=== PATIENT | female | born 1960 | race Caucasian/White ===

== ENCOUNTER 2017-10-30 08:49 | Day surgery (SDC) | payer BC ==
[2017-10-30] MEDS: NS 1,000 ML IV (10:26)
[2017-10-30] MEDS ORDERED: PROPOFOL 200 MG/20 ML VIAL As Ordered ×2 (10:43→10:53)
[2017-10-30] MEDS ORDERED: LIDOCAINE 2% INJ 100 MG/5 ML SDV (FOR ANES.) As Ordered (10:43)
== END 2017-10-30 11:50 | disposition home or self-care (01) ==
LOC: M OPP 08:49
DX: Z12.11 Encounter for screening for malignant neoplasm of colon (principal); Q43.8 Other specified congenital malformations of intestine; Z86.010 Personal history of colon polyps; D64.9 Anemia, unspecified; C91.10 Chronic lymphocytic leukemia of B-cell type not having achieved remission; M85.80 Other specified disorders of bone density and structure, unspecified site; G47.00 Insomnia, unspecified; Z79.899 Other long term (current) drug therapy; Z82.69 Family history of other diseases of the musculoskeletal system and connective tissue; Z80.1 Family history of malignant neoplasm of trachea, bronchus and lung
CPT/HCPCS: 45378

== ENCOUNTER → 2019-01-21 | Outpatient (REF) | payer BC ==
[~2019-01-21] MED LIST: ESZO1TAB6 PO; FERR32TA PO; LORA0.5T11 PO; OSPH1TAB PO
[2019-01-21 16:01] LABS: HEMATOCRIT 38.7 % (36.0-47.0); HEMOGLOBIN 11.6 g/dl (12.0-15.5); MEAN CORPUSCULAR HEMOGLOBIN 30.4 pg (27.0-33.0); MEAN CORPUSCULAR VOLUME 101.6 fl (80.0-96.0); PLATELET COUNT, AUTOMATED 161 10^3/uL (150-450); RED BLOOD COUNT 3.81 10^6/uL (4.00-5.40)
[2019-01-21 16:12] LABS: ALBUMIN 4.3 GM/DL (3.2-5.2); ALT/SGPT 24 U/L (12-78); BILIRUBIN,TOTAL 0.5 MG/DL (0.2-1.0); BLOOD UREA NITROGEN 10 MG/DL (7-18); CALCIUM LEVEL 9.1 MG/DL (8.5-10.1); CARBON DIOXIDE LEVEL 27 MEQ/L (21-32); CHLORIDE LEVEL 108 MEQ/L (98-107); CREATININE FOR GFR 0.89 MG/DL (0.55-1.30); GLOMERULAR FILTRATION RATE > 60.0 (>51); GLUCOSE, FASTING 88 MG/DL (70-100); POTASSIUM SERUM 4.2 MEQ/L (3.5-5.1); SODIUM LEVEL 143 MEQ/L (136-145); TOTAL PROTEIN 6.4 GM/DL (6.4-8.2); WHITE BLOOD COUNT 103.3 10^3/uL (4.0-10.0)
== END ==
LOC: M LABDRAW1 15:43
DX: C50.411 Malignant neoplasm of upper-outer quadrant of right female breast (principal)

== ENCOUNTER → 2019-01-21 | Outpatient (CLI) | payer BC ==
--- NOTE | 2019-01-22 18:22 | ECGEPIP ---
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
== END ==
LOC: M EKG 12:07
DX: C50.911 Malignant neoplasm of unspecified site of right female breast (principal)

== ENCOUNTER → 2019-03-07 | Outpatient (CLI) | payer BC ==
[~2019-03-07] MED LIST changes: +CALQ100C PO; +D 50CAP3 PO; +META58.68 PO; +REPLGEL VA; +[UNRECOGNIZED DRUG - CODE] SC
--- NOTE | 2019-03-08 08:30 | RADONC ---
RADIATION ONCOLOGY NEW PATIENT CONSULTATION DATE: 03/07/2019 CHART NUMBER: [id number] DIAGNOSIS: Infiltrating ductal carcinoma, right breast located in the upper outer quadrant at the 1 o'clock position. STAGE: Stage I A, [id number], grade 1, ER positive, [place] positive, HER2/alek oncogene not overly expressed. ICD-10 CODE: C50.419 ECOG PERFORMANCE STATUS: 0. HISTORY OF PRESENT ILLNESS: The patient is 58 years old and has a history of CLL. She underwent imaging after she was noted to have an abnormality involving the right breast. A breast biopsy was performed, which was consistent with an infiltrating ductal carcinoma, grade 1. The tumor was noted to be an infiltrating ductal carcinoma, which was ER, [place] positive, HER2/alek oncogene not overly expressed. She is under the care of the medical oncologist for her CLL, Dr. Michael Cueva, who she is also seeing from time to time in followup. Her breast core biopsy was performed on December 13, 2018/invasive ductal carcinoma, grade 1, ER 95%, NY 75%, HER2/alek oncogene not amplified. The patient claims that she can never actually felt the mass. There apparently was no evidence of skin dimpling or nipple retraction or any peau d'orange changes in the breast. PAST MEDICAL HEALTH: History of chronic lymphocytic leukemia. She had a lumpectomy on 02/04/2009, hysterectomy with oophorectomy 08/31/2010 and 12/17/1990. SOCIAL HISTORY: She has never used tobacco. She is an occasional drinker of wine, approximately two glasses per week. She is on no special diet. ALLERGIES: None listed. FAMILY HISTORY OF CANCER: Mother had lung cancer. Grandfather with leukemia or antiplastic anemia, she is unsure. 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 ALLERGIES: NO KNOWN DRUG ALLERGIES. REVIEW OF SYSTEMS: Psychiatric: Denies delusions, hallucinations, mood changes. She has some anxiety and some difficulty with sleeping. Respiratory: Denies coughing, dyspnea, hemoptysis, hiccups, pleuritic chest pain or wheezing. Neurologic: She denies disorientation, dizziness, headaches. She does experience insomnia. Denies memory loss. She has weakness of her right upper extremity from axillary web syndrome. She denies paralysis, seizure, sensory problems or stroke. Neck: Denies masses, muscle weakness, pain, difficulty with range of motion or swelling. Musculoskeletal: Denies arthritis, bone pain, joint pain. She does have some muscle weakness in her right upper extremity with decreased of range of motion. Integumentary: Denies alopecia, blisters, bruising, dry skin, facial burning, nail issues, photosensitivity, pruritus, rashes or urticaria. Hematologic: She denies lymphadenopathy or easy bruising. Genitourinary: Denies dysuria, frequency genital masses, incontinence, nocturia, renal stone disease, sexual dysfunction, urgency, urine color changes, vaginal discharge, bleeding or vaginal spotting. Gastrointestinal: Denies changes in bowel habits. Denies constipation, diarrhea, heartburn, dyspepsia, hematemesis, hematochezia, hemorrhoids, melena, GI bleeding, nausea, pain, cramping, early satiety or vomiting. HEENT: Denies ear pain, epistaxis, esophagitis, hearing problems, mouth dryness, oral bleeding, otitis, sinusitis, sputum production, stomatitis, taste alteration or tinnitus. Constitutional: Denies decreased appetite, fatigue, fevers, lethargy, malaise, night sweats, chills or weight change. Cardiovascular: Denies arrhythmias, chest pain, dyspnea, edema, orthopnea, palpitations. Breasts: She has a history of having a breast mass at 12 o'clock / 1 o'clock position of the right breast. Denies nipple discharge, nipple inversion or pain. Allergic/immunologic: Denies allergies or adverse reactions. Vitals: Weight 101 pounds, temperature 99.2, pulse 101, respirations 18, systolic 120 diastolic 98, O2 saturation 100%. PHYSICAL EXAMINATION: HEENT: Normocephalic. EOMs intact. PERRLA. Fundi benign. Lymphatics: No palpable peripheral lymphadenopathy noted in the cervical, supraclavicular, axillary or inguinal lymph node chains. The patient is status post lumpectomy and the incision is healing nicely. She also has an incision in the right axilla, which is also healing very well. Lungs: Clear to auscultation and percussion. Heart: Regular without murmurs. Abdomen: Without evidence of hepatomegaly, masses, deep abdominal tenderness. Extremities: Without cyanosis, clubbing or edema. Neurologic: Examination grossly physiologic. IMPRESSION: Infiltrating ductal carcinoma involving the 1 o'clock position of the right breast, grade 1, ER, [place] positive, HER2/alek oncogene not overly expressed. PLAN OF RADIOTHERAPY: The patient has an oncotype DX, which revealed a score of 15, which puts her at fairly low risk for a local regional recurrence. She is seeing Dr. Goldstein later this afternoon who may place her on hormonal therapy, but we will wait to see if she (Dr. Goldstein) is going to recommend chemotherapy and/or hormonal therapy. If the patient receives hormonal therapy and no systemic chemotherapy, the patient could initiate adjuvant radiotherapy to the right chest wall. Treatments will be delivered via a 3-D conformal radiotherapy technique at conventional fractionation. Prior to treatment delivery, localization will be accomplished upon our CT simulator and treatment portals defined by the use of multiple leaf collimators. The indications, possible side effects of radiotherapy including, but not necessarily limited to redness of the skin, fatigue, retraction of the irradiated breast, pain within the irradiated breast, increased rib fragility and the remote possibility of radiation pneumonitis have all been explained to the patient, she understands and is willing to proceed as outlined. Thank you for referring this very sylvester lady to us and allowing us the opportunity of participation in her overall management. Most sincerely, Ehsan Talavera MD cc: Leona Goldstein MD
== END ==
LOC: M ONCR 09:47
PROVIDERS: ATTEND Radiology Radiation Oncology
DX: C50.419 Malignant neoplasm of upper-outer quadrant of unspecified female breast (principal)

== ENCOUNTER 2019-04-10 11:01 | Outpatient (RCR) | payer BC ==
--- NOTE | 2019-03-18 13:52 | RADONC ---
RADIATION ONCOLOGY SIMULATION NOTE DATE OF SERVICE: 03/18/2019 CHART NUMBER: [id number]. SIMULATION NOTE: Mrs. Lucero with a diagnosis of right breast carcinoma was simulated today for radiation treatments. She was placed in a supine position, and an immobilization device was constructed for day-to-day accuracy in her setup. She tolerated the construction of the immobilization device quite well with no untoward side effects. Thereafter, 3-mm images were captured via our CT scanner, and these images will be utilized for contouring both normal and targeted structures during her treatment. I was there during the entire course of her simulation process. She tolerated the entire procedure quite well without untoward side effects. The images will be utilized for contouring and subsequent targeting of both structures intended to be treated and for those which require avoidance. PHILIPPE
--- NOTE | 2019-03-25 11:48 | RADONC ---
RADIATION ONCOLOGY PROGRESS NOTE DATE: 03/25/2019 CHART NUMBER: [id number] Ms. Lucero came to the linear accelerator today and underwent her first fraction of radiation to her right breast for a dose of 180 cGy. It was tolerated without difficulty or discomfort. The patient's review of systems is unchanged and negative. She denies nausea, vomiting, fevers, chills, night sweats, diplopia, headaches, anxiety or depression, anorexia, weight loss, visual disturbances, chest pain, urinary or bowel difficulties, bone pain, or neurological problems. PHYSICAL EXAMINATION: Clearly, the patient's skin showed no evidence of radiation change present, as this was her first treatment. The remainder of her physical exam remains unchanged as well. Ms. Lucero tolerated her first fraction without difficulty, and radiation will continue as scheduled.
--- NOTE | 2019-04-02 10:24 | RADONC ---
RADIATION ONCOLOGY PROGRESS NOTE DATE: 04/01/2019 CHART NUMBER: [id number] PROGRESS NOTE: Ms. Lucero is presently at a dose of 1080 cGy to her right breast and is tolerating treatments quite well at this point with no complaints related to her radiation therapy. She has no breast or bone pain. REVIEW OF SYSTEMS: The patient's review of systems is noncontributory. Denies nausea, vomiting, fevers, chills, night sweats, diplopia, headaches, anxiety or depression, anorexia, weight loss, visual disturbances, chest pain, urinary or bowel difficulties, bone pain, or neurological problems. PHYSICAL EXAMINATION: The patient's skin is in good condition with no evidence of radiation change present. There is no moist or dry desquamation. The remainder of her physical exam remains unchanged. Ms. Lucero is tolerating treatments quite well and radiation will continue as scheduled.
--- NOTE | 2019-04-10 08:34 | RADONC ---
RADIATION ONCOLOGY PROGRESS NOTE DATE: 04/08/2019 CHART #: [id number] Ms. Lucero is presently at a dose of 1980 cGy to her right breast and is tolerating treatments quite well at this point with no complaints related to her radiation therapy. She is having no breast bone pain. REVIEW OF SYSTEMS: The patient's review of systems is noncontributory. Denies nausea, vomiting, fevers, chills, night sweats, diplopia, headaches, anxiety or depression, anorexia, weight loss, visual disturbances, chest pain, urinary or bowel difficulties, bone pain, or neurological problems. PHYSICAL EXAMINATION: The patient's skin is in good condition with no evidence of moist or dry desquamation. The remainder of her physical exam remains unchanged. Ms. Lucero is tolerating treatments quite well and radiation will continue as scheduled.
== END 2019-04-13 ==
LOC: M ONCR 11:01
PROVIDERS: ATTEND Radiology Radiation Oncology
DX: C50.419 Malignant neoplasm of upper-outer quadrant of unspecified female breast (principal)

== ENCOUNTER → 2019-05-14 | Outpatient (RCR) | payer BC ==
--- NOTE | 2019-04-16 10:41 | RADONC ---
RADIATION ONCOLOGY DATE OF SERVICE: 04/16/2019 CHART NUMBER: [id number] Ms. Lucero is a 58-year-old lady who carries a diagnosis of right breast CA. So far, she has received a dose of 2700 cGy in 15 fractions. There is mild to moderate skin erythema, especially around the nipple and there is some itching, which I recommended hydrocortisone cream for the itching and I also advised to use aloe from the plant. She has no other complaints. Denies night sweats, fevers, chills. She is tolerating treatment well without any unusual side effects and the radiation therapy will continue as planned. MTDD
--- NOTE | 2019-04-22 13:22 | RADONC ---
RADIATION ONCOLOGY PROGRESS NOTE DATE OF SERVICE: 04/22/2019 CHART NUMBER: [id number]. PROGRESS NOTE: Ms. Lucero is presently at a dose of 3420 cGy to her right breast and is tolerating treatments quite well at this point with no complaints related to her radiation therapy. She is having no breast or bone pain. REVIEW OF SYSTEMS: The patient's review of systems is noncontributory. She denies nausea, vomiting, fevers, chills, night sweats, diplopia, headaches, anxiety or depression, anorexia, weight loss, visual disturbances, chest pain, urinary or bowel difficulties, bone pain, or neurological problems. PHYSICAL EXAMINATION: The patient's skin is in excellent condition with no evidence of radiation change present. There is no moist or dry desquamation. The remainder of her physical exam remains unchanged. Ms. Lucero is tolerating treatments quite well, and radiation will continue as scheduled.
--- NOTE | 2019-04-26 07:10 | RADONC ---
RADIATION ONCOLOGY SIMULATION NOTE: DATE: 04/25/2019 CHART NUMBER: [id number] Ms. Lucero was taken to the linear accelerator today for clinical setup of her electron beam right breast boost. Setup was accomplished without difficulty or discomfort. Radiation treatment planning is underway and radiation treatments will begin subsequently. An immobilization device was created without difficulty or discomfort. It will be used throughout the course of treatment. I was physically present throughout the course of CT simulation. PHILIPPE
--- NOTE | 2019-05-01 06:41 | RADONC ---
RADIATION ONCOLOGY PROGRESS NOTE DATE: 04/29/2019 CHART NUMBER: [id number] Ms. Lucero is presently a dose of 4320 cGy to her right breast and is tolerating treatments quite well at this point with no complaints related to her radiation therapy. She has some soreness in her right wrist which appears to be arthritic in nature. REVIEW OF SYSTEMS: The patient's review of systems is noncontributory. She denies nausea, vomiting, fevers, chills, night sweats, diplopia, headaches, anxiety or depression, anorexia, weight loss, visual disturbances, chest pain, urinary or bowel difficulties, bone pain, or neurological problems. PHYSICAL EXAMINATION: The patient's skin is in good condition with no evidence of moist or dry desquamation. The remainder of her physical exam remains unchanged. Ms. Lucero is tolerating treatments quite well and radiation will continue as scheduled.
--- NOTE | 2019-05-13 15:59 | RADONC ---
RADIATION ONCOLOGY PROGRESS NOTE DATE: 05/13/2019 CHART NUMBER: [id number] Mrs. Lucero with a diagnosis of a upper outer quadrant right breast cancer stage [id number], grade 1 is currently receiving local regional radiotherapy. She has achieved a dose of 4680 cGy and is currently receiving a boost to the lumpectomy scar site. She has accomplished a dose of 1000 cGy of an anticipated 1200 cGy to the boost. She will complete her entire prescribed dose of radiotherapy tomorrow and thereafter radiation therapy treatment summary will be dictated. Thus far she is doing quite well, denying any nausea, vomiting, coughing, sputum production or hemoptysis. Her energy level is excellent and she is able to maintain most of her day-to-day activities without any alteration of her lifestyle. She reports very little skin reaction. EXAMINATION FINDINGS: The skin within the irradiated volume is very minimal with perhaps some hyperpigmentation and minimal erythema but no evidence of desquamation. She is not uncomfortable. There is no evidence of obvious desquamation or significant erythema. No palpable peripheral lymphadenopathy is appreciated. The remainder of the physical examination is unchanged. IMPRESSION: Tolerating therapy well. PLAN: Treatments to continue and a radiation therapy treatment summary will follow.
[~2019-05-14] MED LIST changes: +LETR2.5T2 PO
--- NOTE | 2019-05-16 07:26 | RADONC ---
RADIATION ONCOLOGY TREATMENT SUMMARY DATE: 05/14/2019 CHART #: [id number] DIAGNOSIS: Infiltrating ductal carcinoma, right breast at the 1 o'clock position. STAGE: I A ([id number]), grade 1, ER positive, [place] positive, HER2/alek oncogene not overly expressed. ECOG PERFORMANCE STATUS: 0. PLAN OF RADIOTHERAPY: Adjuvant postoperative radiotherapy to prevent a local regional recurrence. DATE RADIOTHERAPY STARTED: Monday, March 25, 2019. DATE RADIOTHERAPY COMPLETED: Tuesday, May 14, 2019 dose. The patient received a total of 4860 cGy administered in 27 fractions over 39 elapsed days. Prior to treatment delivery, localization was accomplished upon our CT simulator and treatment portals were defined by the use of multiple leaf collimators. A 6 MV photon beam was utilized to treat the entire breast via a 3-D conformal radiotherapy technique. After the completion of 4860 cGy, the lumpectomy site was boosted via a 9 MEV electron beam for an additional 1200 cGy administered in 6 fractions over 12 elapsed days. The breast dose was assessed at the 98% isodose line where as the rest boost was assessed at the 90% isodose line. STATUS OF TUMOR: There was neither evidence clinically of local regional recurrence nor clinical evidence of distant metastatic spread during her course of radiotherapy. TOLERANCE: In general, treatments were quite well tolerated as she denied any significant nausea, vomiting, coughing, sputum production or hemoptysis. Her energy level remained relatively constant and she was able to maintain most day-to-day activities without any alteration of her lifestyle. DISPOSITION: Return to clinic in 1 month for post radiotherapy followup visit and skin check. She was advised to return to her referring physicians as per their directions and instructions. cc: MD Angie Limon MD Daniel DeBlasio, MD Wade C. Hedegard, MD Karen Nevills, MD Kaveh Dowd MD
== END ==
LOC: M ONCR 04-15 09:21
PROVIDERS: ATTEND Radiology Radiation Oncology
DX: C50.419 Malignant neoplasm of upper-outer quadrant of unspecified female breast (principal)

== ENCOUNTER → 2019-06-12 | Outpatient (CLI) | payer BC ==
[~2019-06-12] MED LIST changes: -LORA0.5T11 PO; +LORA0.5T5 PO
--- NOTE | 2019-06-13 11:19 | RADONC ---
RADIATION ONCOLOGY FOLLOWUP NOTE DATE: 06/12/2001 CHART #: [id number] DIAGNOSIS: Right breast cancer. STAGE: I A, T1b, N0, M0, grade 1, ER positive, [place] positive, HER2 negative. ECOG PERFORMANCE STATUS: 0. FOLLOWUP NOTE: Ms. Lucero is a very pleasant 58-year-old white female with the diagnosis of a stage I A, T1b, N0, M0, well-differentiated infiltrating ductal carcinoma of her right breast who is presenting to us today for routine followup visit 1 month post completion of external beam radiation therapy. The patient presents today reporting that she is doing quite well with no complaints at this time related to radiation therapy or disease. She has no breast or bone pain. REVIEW OF SYSTEMS: The patient's review of systems is noncontributory. Denies nausea, vomiting, fevers, chills, night sweats, diplopia, headaches, anxiety or depression, anorexia, weight loss, visual disturbances, chest pain, urinary or bowel difficulties, bone pain, or neurological problems. PHYSICAL EXAMINATION: The patient is a well-developed, well-nourished female in no acute distress. HEENT exam is normocephalic, atraumatic. Extraocular movements are intact. There is no palpable cervical, supraclavicular, infraclavicular, axillary, or inguinal lymphadenopathy present. Lungs are clear to auscultation and percussion. Heart has a regular rate and rhythm. Abdomen is benign with no hepatosplenomegaly, masses, or tenderness. Breast examination reveals no masses or discharge bilaterally. Skeletal examination reveals no tenderness to pressure or percussion of the bony skeleton. Extremities reveal no clubbing, cyanosis, or edema. Neurologic exam is grossly intact, as is the remainder of the physical examination. ASSESSMENT: The patient is clinically CHRISTOPHER at this time. She is continuing her close followup with her medical oncologist and other physicians as well. In light of this, I am discharging her from my followup except on a p.r.n. basis. cc: MD Angie Limon MD Wade C. Hedegard, MD [place], MD Michael Peyser, MD David Reindl, MD
== END ==
LOC: M ONCR 10:44
PROVIDERS: ATTEND Radiology Radiation Oncology
DX: C50.419 Malignant neoplasm of upper-outer quadrant of unspecified female breast (principal)

== ENCOUNTER → 2019-06-13 | Outpatient (CLI) | payer BC ==
--- NOTE | 2019-06-19 10:33 | DEXA ---
AP SPINE L1 - L4 0.936 -2.1 -1.1 LT FEMUR TOTAL 0.754 -2.0 -1.2 LT NECK 0.797 -1.7 -0.6 RT FEMUR TOTAL 0.710 -2.4 -1.6 RT NECK 0.724 -2.3 -1.1 TOTAL BODY TOTAL OTHER COMMENTS: There is low bone density of the spine and hips. The density of the spine has decreased 12.7% since 08/12/2011. The density of the left hip has decreased 5.8% since 10/03/2017. The density of the left hip has decreased 14.3% since the initial exam on 08/12/2011. The density of the left hip has decreased 5.7% since the most recent exam on 10/03/2017. FOLLOW-UP: Recommendation for the next bone density exam: 2 years. PHILIPPE
== END ==
LOC: M WHC 11:13
PROVIDERS: ATTEND Internal Medicine Medical Oncology
DX: C90.00 Multiple myeloma not having achieved remission (principal)

== ENCOUNTER → 2019-06-19 | Outpatient (REF) | payer BC | LOC: M LAB REF 17:26 | PROVIDERS: ATTEND Dermatology | DX: D48.5 Neoplasm of uncertain behavior of skin (principal) ==

== ENCOUNTER → 2019-08-16 | Outpatient (CLI) | payer BC ==
[2019-08-16 09:51] LABS: BASO # 0.1 10^3/uL (0.0-0.2); BASO % 1.2 % (0.0-1.0); EOS # 0.1 10^3/uL (0.0-0.5); EOS % 3.1 % (0.0-3.0); HEMATOCRIT 39.1 % (36.0-47.0); HEMOGLOBIN 12.5 g/dl (12.0-15.5); LYMPH # 1.7 10^3/uL (1.5-5.0); LYMPH % 39.2 % (24.0-44.0); MEAN CORPUSCULAR HEMOGLOBIN 31.1 pg (27.0-33.0); MEAN CORPUSCULAR VOLUME 97.3 fl (80.0-96.0); MONO # 0.3 10^3/uL (0.0-0.8); MONO % 7.3 % (0.0-5.0); NEUTROPHILS # 2.1 10^3/uL (1.5-8.5); PLATELET COUNT, AUTOMATED 180 10^3/uL (150-450); RED BLOOD COUNT 4.02 10^6/uL (4.00-5.40); WHITE BLOOD COUNT 4.3 10^3/uL (4.0-10.0)
[2019-08-16 10:21] LABS: ALBUMIN 4.2 GM/DL (3.2-5.2); BILIRUBIN,TOTAL 0.3 MG/DL (0.2-1.0); CALCIUM LEVEL 9.2 MG/DL (8.5-10.1); CREATININE FOR GFR 1.04 MG/DL (0.55-1.30); GLOMERULAR FILTRATION RATE 58.1 (>51); PHOSPHORUS LEVEL 4.1 MG/DL (2.5-4.9); POTASSIUM SERUM 4.7 MEQ/L (3.5-5.1); TOTAL PROTEIN 6.6 GM/DL (6.4-8.2)
== END ==
LOC: M LAB 09:11
PROVIDERS: ATTEND Internal Medicine
DX: C91.90 Lymphoid leukemia, unspecified not having achieved remission (principal)

== ENCOUNTER → 2019-09-13 | Outpatient (REF) | payer BC | LOC: M LAB REF 17:18 | PROVIDERS: ATTEND Internal Medicine | DX: C91.90 Lymphoid leukemia, unspecified not having achieved remission (principal) ==

== ENCOUNTER → 2020-04-14 | Outpatient (CLI) | payer BC ==
[~2020-04-14] MED LIST changes: +EXEM25TA PO; +LUNE3TAB36 PO; +PROHANCE 279.3MG/ML 5ML VIAL As Ordered ONE; +ZOLE1INJ IV
--- NOTE | 2020-04-23 16:51 | REP ---
INDICATION: NEW NODULE; RT BREAST. New nodularity right breast not seen on mammography. Prior history of carcinoma of the right breast status post lumpectomy and radiation therapy. COMPARISON: Report was delayed pending receipt of prior MRI study from an outside facility dated December 21, 2018. Comparison is also made with prior mammography October 21, 2019. TECHNIQUE: Three Flavia MRI imaging was performed with a dedicated breast coil. Axial, coronal, and sagittal T1 and T2 weighted scans were obtained with and without fat saturation in the usual fashion. The study includes dynamically acquired post gadolinium-enhanced imaging with image subtraction. Maximum intensity projection and multi planar reformation imaging is included as well. This study is interpreted with the aid of MammotomeD, an FDA approved computer aided detection (CAD) software program, on a dedicated breast MRI workstation. The gadolinium enhancement dose is 9 mL of intravenous ProHance. FINDINGS: There are post treatment changes in the right breast including postsurgical fibrosis, contour deformity, and small size in the right breast compared to the left. These correspond with the mammographic findings. There is a moderate pattern of fibroglandular tissue. There is no evidence of axillary lymphadenopathy on either side. No significant breast cystic changes seen. High-resolution T1 and T2-weighted pre and postcontrast imaging show no other significant morphologic abnormality in either breast apart from the area of post operative fibrosis in the right breast. Dynamically acquired sequential postcontrast images show no suspicious enhancement here or elsewhere in either breast to suggest malignancy. There are somewhat prominent veins in the medial aspect of the left breast which are unchanged from the comparison study of December 21, 2018. Subtraction images show no significant finding. IMPRESSION: Expected post treatment changes in the right breast. BI-RADS category 2 benign findings. No suspicious abnormality on either side. <Electronically signed by Herve Garnica > 04/23/20 [id number]
== END ==
LOC: M RAD 15:21
PROVIDERS: ATTEND Internal Medicine Medical Oncology
DX: Z85.3 Personal history of malignant neoplasm of breast (principal); Z92.3 Personal history of irradiation
CPT/HCPCS: A9576; C8908

== ENCOUNTER → 2020-04-22 | Outpatient (CLI) | payer BC ==
[~2020-04-22] MED LIST changes: -PROHANCE 279.3MG/ML 5ML VIAL As Ordered ONE
[2020-04-22 13:33] LABS: ALBUMIN 4.4 GM/DL (3.2-5.2); BILIRUBIN,TOTAL 0.4 MG/DL (0.2-1.0); CALCIUM LEVEL 8.9 MG/DL (8.5-10.1); CREATININE FOR GFR 1.04 MG/DL (0.55-1.30); GLOMERULAR FILTRATION RATE 57.9 (>51); POTASSIUM SERUM 4.5 MEQ/L (3.5-5.1); TOTAL PROTEIN 6.6 GM/DL (6.4-8.2)
== END ==
LOC: M LAB 12:29
PROVIDERS: ATTEND Internal Medicine Medical Oncology
DX: M85.9 Disorder of bone density and structure, unspecified (principal)

== ENCOUNTER → 2021-01-19 | Outpatient (CLI) | payer BC ==
[~2021-01-19] MED LIST changes: +ATIV1TAB10 PO; +COVI30VI IM; +D31000TA2 PO; +TUMS500C PO
[2021-01-19 10:59] LABS: BASO % 1.1 % (0.0-1.0); EOS % 1.1 % (0.0-3.0); HEMATOCRIT 40.9 % (36.0-47.0); HEMOGLOBIN 13.2 g/dl (12.0-15.5); LYMPH % 27.9 % (24.0-44.0); MEAN CORPUSCULAR HGB CONC 32.3 g/dl (32.0-36.5); MONO # 0.3 10^3/uL (0.0-0.8); MONO % 7.9 % (2.0-8.0); NEUTROPHILS # 2.3 10^3/uL (1.5-8.5); NEUTROPHILS % 61.7 % (36.0-66.0); PLATELET COUNT, AUTOMATED 201 10^3/uL (150-450); RED BLOOD COUNT 4.26 10^6/uL (4.00-5.40); WHITE BLOOD COUNT 3.7 10^3/uL (4.0-10.0)
[2021-01-19 11:46] LABS: ALBUMIN 4.1 GM/DL (3.2-5.2); BILIRUBIN,TOTAL 0.4 MG/DL (0.2-1.0); CALCIUM LEVEL 9.4 MG/DL (8.5-10.1); CREATININE FOR GFR 1.02 MG/DL (0.55-1.30); IMMUNOGLOBULIN M 21.2 MG/DL (40-230); POTASSIUM SERUM 4.4 MEQ/L (3.5-5.1); TOTAL PROTEIN 6.4 GM/DL (6.4-8.2)
== END ==
LOC: M LAB 08:54
DX: C91.10 Chronic lymphocytic leukemia of B-cell type not having achieved remission (principal)

== ENCOUNTER → 2021-04-16 | Outpatient (CLI) | payer BC ==
[2021-04-16 08:20] LABS: BASO % 0.5 % (0.0-1.0); EOS # 0.1 10^3/uL (0.0-0.5); EOS % 1.6 % (0.0-3.0); HEMATOCRIT 40.2 % (36.0-47.0); HEMOGLOBIN 13.1 g/dl (12.0-15.5); LYMPH # 1.2 10^3/uL (1.5-5.0); LYMPH % 33.6 % (24.0-44.0); MEAN CORPUSCULAR HEMOGLOBIN 31.8 pg (27.0-33.0); MEAN CORPUSCULAR HGB CONC 32.6 g/dl (32.0-36.5); MEAN CORPUSCULAR VOLUME 97.6 fl (80.0-96.0); MONO # 0.3 10^3/uL (0.0-0.8); MONO % 8.7 % (2.0-8.0); NEUTROPHILS % 55.3 % (36.0-66.0); PLATELET COUNT, AUTOMATED 188 10^3/uL (150-450); RED BLOOD COUNT 4.12 10^6/uL (4.00-5.40); WHITE BLOOD COUNT 3.7 10^3/uL (4.0-10.0)
[2021-04-16 08:42] LABS: ALBUMIN 4.2 GM/DL (3.2-5.2); BILIRUBIN,TOTAL 0.4 MG/DL (0.2-1.0); CALCIUM LEVEL 8.9 MG/DL (8.5-10.1); CREATININE FOR GFR 1.03 MG/DL (0.55-1.30); GLOMERULAR FILTRATION RATE 58.4 (>51); PHOSPHORUS LEVEL 3.8 MG/DL (2.5-4.9); POTASSIUM SERUM 4.6 MEQ/L (3.5-5.1); TOTAL PROTEIN 6.4 GM/DL (6.4-8.2)
== END ==
LOC: M LAB 07:38
PROVIDERS: ATTEND Nurse Practitioner Gerontology
DX: C91.10 Chronic lymphocytic leukemia of B-cell type not having achieved remission (principal)

== ENCOUNTER → 2021-06-24 | Outpatient (REF) | payer BC ==
[~2021-06-24] MED LIST changes: +CLAR10CA3 PO; +ESZO1TAB6
== END ==
LOC: M LAB REF 12:24
PROVIDERS: ATTEND Internal Medicine
DX: N95.2 Postmenopausal atrophic vaginitis (principal)

== ENCOUNTER → 2021-07-09 | Outpatient (CLI) | payer BC ==
[2021-07-09 09:39] LABS: BASO % 0.8 % (0.0-1.0); EOS # 0.1 10^3/uL (0.0-0.5); EOS % 1.7 % (0.0-3.0); HEMATOCRIT 39.8 % (36.0-47.0); HEMOGLOBIN 12.8 g/dl (12.0-15.5); LYMPH # 1.1 10^3/uL (1.5-5.0); LYMPH % 31.4 % (24.0-44.0); MEAN CORPUSCULAR HEMOGLOBIN 31.3 pg (27.0-33.0); MEAN CORPUSCULAR HGB CONC 32.2 g/dl (32.0-36.5); MEAN CORPUSCULAR VOLUME 97.3 fl (80.0-96.0); MONO # 0.4 10^3/uL (0.0-0.8); MONO % 11.9 % (2.0-8.0); NEUTROPHILS # 1.9 10^3/uL (1.5-8.5); NEUTROPHILS % 53.9 % (36.0-66.0); PLATELET COUNT, AUTOMATED 206 10^3/uL (150-450); RED BLOOD COUNT 4.09 10^6/uL (4.00-5.40); WHITE BLOOD COUNT 3.5 10^3/uL (4.0-10.0)
[2021-07-09 10:09] LABS: ALBUMIN 4.2 GM/DL (3.2-5.2); BILIRUBIN,TOTAL 0.4 MG/DL (0.2-1.0); CALCIUM LEVEL 9.1 MG/DL (8.5-10.1); CREATININE FOR GFR 1.02 MG/DL (0.55-1.30); PHOSPHORUS LEVEL 2.5 MG/DL (2.5-4.9); POTASSIUM SERUM 4.4 MEQ/L (3.5-5.1); TOTAL PROTEIN 6.8 GM/DL (6.4-8.2)
== END ==
LOC: M LAB 09:10
PROVIDERS: ATTEND Nurse Practitioner Gerontology
DX: C91.10 Chronic lymphocytic leukemia of B-cell type not having achieved remission (principal)

== ENCOUNTER → 2021-07-21 | Outpatient (CLI) | payer BC ==
[~2021-07-21] MED LIST changes: -D31000TA2 PO; +VITA100093 PO
== END ==
LOC: M WHC 09:45
PROVIDERS: ATTEND Obstetrics & Gynecology
DX: N95.0 Postmenopausal bleeding (principal)

== ENCOUNTER → 2021-09-09 | Outpatient (REF) | payer BC | LOC: M SFHCDERM 14:21 | PROVIDERS: ATTEND Physician Assistant | DX: L82.1 Other seborrheic keratosis (principal) ==

== ENCOUNTER → 2021-11-22 | Outpatient (CLI) | payer BC | LOC: M WHC 10:29 | PROVIDERS: ATTEND Internal Medicine Medical Oncology | DX: M85.89 Other specified disorders of bone density and structure, multiple sites (principal) ==

== ENCOUNTER → 2022-05-31 | Outpatient (REF) | payer BC | LOC: M SFHCWAGY 17:09 | PROVIDERS: ATTEND Specialist | DX: Z01.419 Encounter for gynecological examination (general) (routine) without abnormal findings (principal); Z12.4 Encounter for screening for malignant neoplasm of cervix ==

== ENCOUNTER → 2022-06-08 | Outpatient (CLI) | payer BC ==
[2022-06-08 10:01] LABS: BASO % 1.1 % (0.0-1.0); EOS # 0.1 10^3/uL (0.0-0.5); EOS % 2.7 % (0.0-3.0); HEMOGLOBIN 13.7 g/dl (12.0-15.5); LYMPH # 1.1 10^3/uL (1.5-5.0); LYMPH % 28.6 % (24.0-44.0); MEAN CORPUSCULAR HEMOGLOBIN 31.7 pg (27.0-33.0); MEAN CORPUSCULAR HGB CONC 31.9 g/dl (32.0-36.5); MEAN CORPUSCULAR VOLUME 99.5 fl (80.0-96.0); MONO # 0.3 10^3/uL (0.0-0.8); MONO % 8.7 % (2.0-8.0); NEUTROPHILS # 2.2 10^3/uL (1.5-8.5); NEUTROPHILS % 58.6 % (36.0-66.0); PLATELET COUNT, AUTOMATED 204 10^3/uL (150-450); RED BLOOD COUNT 4.32 10^6/uL (4.00-5.40); WHITE BLOOD COUNT 3.7 10^3/uL (4.0-10.0)
[2022-06-08 10:34] LABS: ALBUMIN 4.6 G/DL (3.2-5.2); BILIRUBIN,TOTAL 0.5 MG/DL (0.3-1.2); CALCIUM LEVEL 9.6 MG/DL (8.3-10.6); CREATININE FOR GFR 1.04 MG/DL (0.55-1.30); GLOMERULAR FILTRATION RATE 57.5 (>45); PHOSPHORUS LEVEL 4.3 MG/DL (2.4-5.1); POTASSIUM SERUM 4.4 MMOL/L (3.5-5.1); TOTAL PROTEIN 6.5 G/DL (5.7-8.2)
== END ==
LOC: M LAB 09:06
PROVIDERS: ATTEND Nurse Practitioner Gerontology
DX: C91.10 Chronic lymphocytic leukemia of B-cell type not having achieved remission (principal)

== ENCOUNTER → 2022-11-24 | Outpatient (CLI) | payer BC ==
[~2022-11-24] MED LIST changes: +ACAL100T PO
[2022-11-24 15:09] LABS: BASO % 0.4 % (0.0-1.0); EOS # 0.1 10^3/uL (0.0-0.5); EOS % 1.1 % (0.0-3.0); HEMATOCRIT 38.1 % (36.0-47.0); HEMOGLOBIN 12.1 g/dl (12.0-15.5); LYMPH # 1.2 10^3/uL (1.5-5.0); LYMPH % 26.7 % (24.0-44.0); MEAN CORPUSCULAR HEMOGLOBIN 31.6 pg (27.0-33.0); MEAN CORPUSCULAR HGB CONC 31.8 g/dl (32.0-36.5); MEAN CORPUSCULAR VOLUME 99.5 fl (80.0-96.0); MONO # 0.3 10^3/uL (0.0-0.8); MONO % 7.4 % (2.0-8.0); NEUTROPHILS # 2.9 10^3/uL (1.5-8.5); NEUTROPHILS % 64.2 % (36.0-66.0); PLATELET COUNT, AUTOMATED 199 10^3/uL (150-450); RED BLOOD COUNT 3.83 10^6/uL (4.00-5.40); WHITE BLOOD COUNT 4.6 10^3/uL (4.0-10.0)
[2022-11-24 15:31] LABS: ALBUMIN 4.1 G/DL (3.2-5.2); BILIRUBIN,TOTAL 0.3 MG/DL (0.3-1.2); CREATININE FOR GFR 1.05 MG/DL (0.55-1.30); GLOMERULAR FILTRATION RATE 56.7 (>45); POTASSIUM SERUM 4.2 MMOL/L (3.5-5.1)
== END ==
LOC: M LAB 14:16
PROVIDERS: ATTEND Internal Medicine
DX: C91.10 Chronic lymphocytic leukemia of B-cell type not having achieved remission (principal)

== ENCOUNTER 2023-01-18 12:32 | Day surgery (SDC) | payer BC ==
[~2023-01-18] VITALS: Ht 162.6 cm; Wt 46.3 kg
[~2023-01-18 12:32] MED LIST changes: +CHOL125C5 PO; -ESZO1TAB6; +NS 1,000 ML IV ONE; +xyzal PO
[2023-01-18 14:59] VITALS: TEMP 97.3
[2023-01-18 15:17] VITALS: BP 103/60; O2SAT 100
== END 2023-01-18 15:29 | disposition home or self-care (01) ==
LOC: M OPP 12:32
PROVIDERS: ATTEND Internal Medicine Gastroenterology
DX: Z86.010 Personal history of colon polyps (principal); Q43.8 Other specified congenital malformations of intestine; K64.8 Other hemorrhoids; C91.10 Chronic lymphocytic leukemia of B-cell type not having achieved remission; G47.00 Insomnia, unspecified; Z85.3 Personal history of malignant neoplasm of breast; Z92.21 Personal history of antineoplastic chemotherapy; Z92.3 Personal history of irradiation; Z80.1 Family history of malignant neoplasm of trachea, bronchus and lung; Z80.0 Family history of malignant neoplasm of digestive organs

== ENCOUNTER → 2023-05-01 | Outpatient (CLI) | payer BC ==
[~2023-05-01] MED LIST changes: +LEVOTAB10 PO; -LUNE3TAB36 PO; +LUNE3TAB50 PO; -NS 1,000 ML IV ONE
[2023-05-01 12:29] LABS: BASO % 0.5 % (0.0-1.0); EOS # 0.1 10^3/uL (0.0-0.5); EOS % 1.2 % (0.0-3.0); HEMATOCRIT 40.9 % (36.0-47.0); HEMOGLOBIN 13.1 g/dl (12.0-15.5); LYMPH # 0.9 10^3/uL (1.5-5.0); LYMPH % 11.1 % (24.0-44.0); MEAN CORPUSCULAR HEMOGLOBIN 31.6 pg (27.0-33.0); MEAN CORPUSCULAR VOLUME 98.8 fl (80.0-96.0); MONO # 0.6 10^3/uL (0.0-0.8); MONO % 6.9 % (2.0-8.0); NEUTROPHILS # 6.5 10^3/uL (1.5-8.5); NEUTROPHILS % 80.2 % (36.0-66.0); PLATELET COUNT, AUTOMATED 211 10^3/uL (150-450); RED BLOOD COUNT 4.14 10^6/uL (4.00-5.40); WHITE BLOOD COUNT 8.1 10^3/uL (4.0-10.0)
[2023-05-01 13:00] LABS: ALBUMIN 4.5 G/DL (3.2-5.2); ALKALINE PHOSPHATASE 38 U/L (46-116); ALT/SGPT 17 U/L (7.0-40); AST/SGOT 16 U/L (<34); BILIRUBIN,TOTAL 0.4 MG/DL (0.3-1.2); BLOOD UREA NITROGEN 10 MG/DL (9-23); CALCIUM LEVEL 9.5 MG/DL (8.3-10.6); CARBON DIOXIDE LEVEL 30 MMOL/L (20-31); CHLORIDE LEVEL 106 MMOL/L (98-107); CREATININE FOR GFR 0.89 MG/DL (0.55-1.30); GLOMERULAR FILTRATION RATE > 60.0 (>45); GLUCOSE, FASTING 92 MG/DL (74-106); PHOSPHORUS LEVEL 3.1 MG/DL (2.4-5.1); POTASSIUM SERUM 4.2 MMOL/L (3.5-5.1); SODIUM LEVEL 140 MMOL/L (136-145); TOTAL PROTEIN 6.6 G/DL (5.7-8.2)
== END ==
LOC: M LAB 11:52
PROVIDERS: ATTEND Internal Medicine
DX: C91.10 Chronic lymphocytic leukemia of B-cell type not having achieved remission (principal)

== ENCOUNTER → 2023-05-17 | Outpatient (CLI) | payer BC | LOC: M PLAIMG 11:24 | PROVIDERS: ATTEND Internal Medicine | DX: R05.9 Cough, unspecified (principal) ==

== ENCOUNTER → 2023-05-24 | Outpatient (CLI) | payer BC | LOC: M RAD 09:36 | PROVIDERS: ATTEND Internal Medicine Medical Oncology | DX: C50.919 Malignant neoplasm of unspecified site of unspecified female breast (principal); M25.551 Pain in right hip ==

== ENCOUNTER → 2023-05-29 | Outpatient (CLI) | payer BC | LOC: M RAD 11:14 | PROVIDERS: ATTEND Internal Medicine Medical Oncology | DX: M46.96 Unspecified inflammatory spondylopathy, lumbar region (principal) ==

== ENCOUNTER → 2023-12-20 | Outpatient (CLI) | payer BC ==
[~2023-12-20] MED LIST changes: +GABA-1171 PO
== END ==
LOC: M WHC 10:29
PROVIDERS: ATTEND Internal Medicine Medical Oncology
DX: M81.0 Age-related osteoporosis without current pathological fracture (principal)

== ENCOUNTER → 2024-04-06 | Outpatient (CLI) | payer BC ==
[~2024-04-06] MED LIST changes: +GABA-1172; +NORT10CA2
[2024-04-06 11:42] LABS: BASO # 0.1 10^3/uL (0.0-0.2); EOS # 0.1 10^3/uL (0.0-0.5); EOS % 2.7 % (0.0-3.0); HEMATOCRIT 39.9 % (36.0-47.0); HEMOGLOBIN 12.9 g/dl (12.0-15.5); LYMPH # 1.2 10^3/uL (1.5-5.0); LYMPH % 22.6 % (24.0-44.0); MEAN CORPUSCULAR HEMOGLOBIN 31.8 pg (27.0-33.0); MEAN CORPUSCULAR HGB CONC 32.3 g/dl (32.0-36.5); MEAN CORPUSCULAR VOLUME 98.3 fl (80.0-96.0); MONO # 0.5 10^3/uL (0.0-0.8); MONO % 9.2 % (2.0-8.0); NEUTROPHILS # 3.4 10^3/uL (1.5-8.5); NEUTROPHILS % 64.3 % (36.0-66.0); PLATELET COUNT, AUTOMATED 268 10^3/uL (150-450); RED BLOOD COUNT 4.06 10^6/uL (4.00-5.40); WHITE BLOOD COUNT 5.2 10^3/uL (4.0-10.0)
[2024-04-06 12:09] LABS: ALBUMIN 4.2 G/DL (3.2-5.2); BILIRUBIN,TOTAL 0.5 MG/DL (0.3-1.2); CALCIUM LEVEL 9.9 MG/DL (8.3-10.6); GLOMERULAR FILTRATION RATE 59.8 (>45); PHOSPHORUS LEVEL 3.8 MG/DL (2.4-5.1); TOTAL PROTEIN 6.6 G/DL (5.7-8.2)
== END ==
LOC: M LAB 09:52
PROVIDERS: ATTEND Internal Medicine
DX: C91.10 Chronic lymphocytic leukemia of B-cell type not having achieved remission (principal)